=== PATIENT | male | born 1985 | race Two or more races ===

== ENCOUNTER 2023-12-19 12:42 | Emergency (ER) | payer OTHER, SELFPAY ==
[2023-12-19 12:49] VITALS: BP 155/109; PULSE 86; RESP 16; TEMP 36.3; O2SAT 97; BMI 29.2
--- NOTE | 2023-12-19 13:12 | ED_ITS ---
HPI - General Adult General Chief complaint: Laceration/Wound Stated complaint: thumb lac Time Seen by Provider: 12/19/23 13:01 History of Present Illness HPI narrative: Patient is a 38-year-old male who is her [employer] reported that he cut his finger on some sheet metal at [employer] that he works at today he it abraded his back of his IP joint of his left thumb. He has by my description to him full range of motion of his finger. I am able to flex and extend at the IP joint and he has good passive and restricted motion with no evidence of tendon involvement. The patient has had good distal CMS in the finger as well. He denies prior injury in that area. Is uncertain of his last tetanus shot. He reports he is generally healthy. Related Data Previous Rx's Medication Instructions Recorded cephalexin 500 mg capsule 500 mg PO QID #20 caps 12/19/23 Allergies Allergy/AdvReac Type Severity Reaction Status Date / Time No Known Drug Allergies Allergy Verified 12/19/23 12:56 Review of Systems Status of ROS: Reports: 6 or more systems reviewed and unremarkable except as noted in History and below PFSH PFSH Social History Smoking Status: Never smoker Non-prescribed substance use: denies use Exam Narrative: Exam Narrative: Objective patient's vital signs show elevated blood pressure, he is afebrile His left thumb shows avulsion of skin fairly superficial over the IP joint he has got normal extension is IP joint as well as flexion against resistance both ways. Normal medial lateral movement. The patient has no open wounds or bleeding wounds that would be repairable. We will soak his finger in some soapy solution and then reexamined. The patient has got no other injuries noted. He reports his tetanus might have been 4 years ago but I think at update that just given the type of injury. Will given Tdap. Will give him Keflex 500 q.i.d. x5 days Const: Vital Signs, click to edit/add: Vital Signs - 24 hr 12/19/23 12:49 Temperature 97.4 F L Pulse Rate [Pulse Oximeter] 86 Respiratory Rate 16 Blood Pressure [Ri ght Upper Arm] 155/109 H Pulse Oximetry 97 Oxygen Delivery Me thod Room Air Course Vital Signs Vital signs: Initial Vital Signs Temperature 97.4 F L 12/19/23 12:49 Temperature Source Temporal Artery Scan 12/19/23 12:49 Pulse Rate 86 12/19/23 12:49 Respiratory Rate 16 12/19/23 12:49 Blood Pressure 155/109 H 12/19/23 12:49 Blood Pressure Mean 124 H 12/19/23 12:49 Blood Pressure Position Sitting 12/19/23 12:49 Pulse Oximetry 97 12/19/23 12:49 Oxygen Delivery Method Room Air 12/19/23 12:49 Vital Signs Temperature 97.4 F L 12/19/23 12:49 Pulse Rate 86 12/19/23 12:49 Respiratory Rate 16 12/19/23 12:49 Blood Pressure 155/109 H 12/19/23 12:49 Pulse Oximetry 97 12/19/23 12:49 Oxygen Delivery Method Room Air 12/19/23 12:49 Temperature 97.4 F L 12/19/23 12:49 Pulse Rate 86 12/19/23 12:49 Respiratory Rate 16 12/19/23 12:49 Blood Pressure 155/109 H 12/19/23 12:49 Pulse Oximetry 97 12/19/23 12:49 Oxygen Delivery Method Room Air 12/19/23 12:49 Medications Administered Medications: Discontinued Medications Generic Name Dose Route Start Last Admin Trade Name Freq PRN Reason Stop Dose Admin Cephalexin HCl 500 mg 12/19/23 13:08 12/19/23 13:28 Cephalexin 500 Mg Capsule PO 12/19/23 13:09 500 mg ONCE ONE Administration Diphtheria/Tetanus/Acell Pertussis 0.5 ml 12/19/23 13:08 12/19/23 13:28 Tetanus/Diphth/Pertussis 0.5 Ml Syringe IM 12/19/23 13:09 0.5 ml .ONCE ONE Administration Medical Decision Making MDM Narrative Medical decision making narrative: Will treat with antibiotics for 5 days Keflex 500 q.i.d. x5 days, would keep covered for at least 2 days, then soak off the bandage in cover with regular bandage, would keep it out of dirt or debris for the next 7 days. May use Tylenol Advil for discomfort. Recommend recheck with primary care doctor at the week's time. Return to ED sooner problems concerns evidence infection other problems. Addendum 1:25 p.m. the patient's soak the area copiously, I was able to fully examine his hand without any obvious discomfort, he had no marked palpable tenderness, he does not feel E injured the bone. This was relayed to [employer]. I do not think he needs an x-ray at this time given the type of injury in the of ill blue of skin. Will cover with bacitracin in [place] and then gauze, she keep this covered for 2 days, then keep at light duty and clean for a week just covered with a bandage to be fine and then follow up with regular doctor at that time. No written to that effect for work. Keflex 500 q.i.d. x5 days , will given updated Tdap. Discharge Plan Discharge Clinical Impression: Avulsion of skin Patient Disposition: Home w/ Parent or Adult Condition: Stable Additional Instructions: Keep covered for 2 days, then soak off the bandage and would recommend topical bacitracin, will give you antibiotics to take for the next 5 days. Would keep your hands out of any dirty area or work environment history over the next 7 days. Recheck with regular doctor in 7 days. Activity Level: Light activity Discharge Diet: Regular Prescriptions: New cephalexin 500 mg capsule 500 mg PO QID Qty: 20 0RF Stand Alone Forms: [employer] Info Instructions
[2023-12-19] MEDS: cephALEXin 500 MG CAPSULE PO (13:28)
[2023-12-19] MEDS: TETANUS/DIPHTH/PERTUSSIS 0.5 ML SYRINGE IM (13:28)
== END 2023-12-19 14:23 | disposition home or self-care (01) ==
LOC: ED 14:14
PROVIDERS: Emergency Provider Family Medicine
DX: S61.102A Unspecified open wound of left thumb with damage to nail, initial encounter (principal); W26.9XXA Contact with unspecified sharp object(s), initial encounter
CPT/HCPCS: 90471; 90715; 99283; A9270